=== PATIENT | male | born 1985 ===

== ENCOUNTER → 2025-06-22 10:00 | Outpatient (REF) | payer OTHER, SELFPAY | LOC: HWRAD 10:00 | PROVIDERS: ATTENDING PHYSICIAN Otolaryngology; FAMILY PHYSICIAN Family Medicine | DX: J33.0 Polyp of nasal cavity (principal); J32.2 Chronic ethmoidal sinusitis; J30.9 Allergic rhinitis, unspecified | CPT/HCPCS: 70486 ==